=== PATIENT | female | born 1980 | race Caucasian/White ===

== ENCOUNTER 2018-09-11 13:44 | Outpatient (CLI) | payer OTHER ==
[~2018-09-11 13:44] MED LIST: COUMADIN7.5 MG; DICY20TA PO; PRILOSEC40 MG PO; TOPAMAX25 MG; ZOFRAN4 MG PO
== END 2018-09-11 13:54 | disposition home or self-care (01) ==
LOC: LAB 13:44
DX: D68.61 Antiphospholipid syndrome (principal); Z80.3 Family history of malignant neoplasm of breast; Z80.0 Family history of malignant neoplasm of digestive organs; Z80.49 Family history of malignant neoplasm of other genital organs; I67.89 Other cerebrovascular disease; N80.0 Endometriosis of uterus; I10 Essential (primary) hypertension; K58.0 Irritable bowel syndrome with diarrhea; E56.1 Deficiency of vitamin K; D50.8 Other iron deficiency anemias; D51.8 Other vitamin B12 deficiency anemias; D68.8 Other specified coagulation defects; R97.0 Elevated carcinoembryonic antigen [CEA]

== ENCOUNTER → 2019-02-19 16:47 | Outpatient (CLI) | payer OTHER | END | disposition home or self-care (01) | LOC: LAB 16:47 | DX: D68.8 Other specified coagulation defects (principal) ==

== ENCOUNTER 2021-04-17 13:34 | Outpatient (CLI) | payer OTHER | END 2021-04-17 15:02 | disposition home or self-care (01) | LOC: RAD 13:34 | PROVIDERS: ATTEND Specialist | DX: M77.32 Calcaneal spur, left foot (principal); M77.31 Calcaneal spur, right foot; M19.071 Primary osteoarthritis, right ankle and foot; M19.072 Primary osteoarthritis, left ankle and foot ==

== ENCOUNTER → 2021-04-17 | Outpatient (CLI) | payer OTHER | END | disposition home or self-care (01) | LOC: NUCLEAR 08:00 | PROVIDERS: ATTEND Internal Medicine Hematology & Oncology | DX: I82.493 Acute embolism and thrombosis of other specified deep vein of lower extremity, bilateral (principal) ==